=== PATIENT | female | born 1980 | race Caucasian/White ===

== ENCOUNTER 2019-06-05 11:53 | Day surgery (SDC) | payer BC, OTHER ==
--- NOTE | 2019-06-05 08:18 | HP ---
DATE OF SURGERY: 06/05/2019 HISTORY OF PRESENT ILLNESS: The patient is a 38 year-old had some for a couple of month's right side abdominal pain, vomiting and diarrhea. She had constant back pain for the past few weeks worse with fatty foods. She has a brother with some gallbladder problems in the past. She had MRCP in the past. She had some loose stools on one occasion but otherwise normal bowel regimen. She went to the emergency room a couple of times. She had CT scans that were okay. She had endoscopic ultrasound by Dr. Meredith who felt she had some chronic cholecystitis and some wall thickening on endoscopic ultrasound. PAST SURGICAL HISTORY: She had surgery on her knuckles and her hand in the past. Right shoulder surgery. section. Tubal. Hysterectomy. Endoscopy and endoscopic ultrasound by Dr. Meredith who felt she had some wall thickening and chronic cholecystitis. MEDICATIONS: Carafate, dicyclomine, Zofran, Prilosec. ALLERGIES: ULTRAM CAUSED SWELLING. FAMILY HISTORY: Negative in regards to this problem. SOCIAL HISTORY: Half pack per day smoker. Occasional alcohol use denies abuse. REVIEW OF SYSTEMS: Fourteen systems reviewed. No chest pain or palpitations other systems negative or noncontributory as above and per preadmission questionnaire. PHYSICAL EXAMINATION: GENERAL: No acute distress. HEENT: Sclerae nonicteric. NECK: No JVD. CHEST: Equal excursion, nonlabored breathing. CVS: Regular rate and rhythm. ABDOMEN: Soft. No peritoneal signs. Mild tenderness right upper quadrant. EXTREMITIES: No significant edema. NEURO: Alert, oriented, moving extremities symmetrically. No gross motor deficits noted. IMPRESSION: Thick walled gallbladder on endoscopic ultrasound. Dr. Meredith felt endoscopic ultrasound findings consistent with chronic cholecystitis. We discussed the options as well as treatments. I felt she would benefit cholecystectomy. Discussed the options of laparoscopic cholecystectomy possible open. She was shown the gallbladder pamphlet and risk sheet, explained the procedure in detail but not limited to bleeding or infection, risk of trocar injury or hernia, small risk of bowel, bladder or blood vessel injury, small risk of bile leak, bile duct injury, retained stone or sludge possibly requiring further procedure either open or ERCP, general risk of anesthesia, deep venous thrombosis, pulmonary embolism, pneumonia, perioperative risk of aches, pains, bloating, constipation and/or loose stools possibly even chronic in nature as well as the possibility that this procedure may not improve her symptoms. She may need further work up and/or testing, endoscopy, other studies or procedures or referrals. She understands and agrees to the planned procedure, will proceed with laparoscopic cholecystectomy with possible open as an outpatient.
[~2019-06-05 11:53] MED LIST: BRIDION 200MG/2ML IV ONE; DIPRIVAN 200 MG/20 ML IV ONE; Lactated Ringers 1,000 ML IV ONE; Lactated Ringers 1,000 ML IV SCH; MEFOXIN 2 GM PREMIX** 2 GM/50 ML ML IV SCH; SUBLIMAZE 250 MCG/5 ML ONE; Sensorcaine 0.25% 10 ML ONE; Versed 2 MG/2 ML Injection ONE; Zemuron 100 MG/10 ML ONE
[2019-06-05] MEDS ORDERED: MEFOXIN 2 GM PREMIX** 2 GM/50 ML ML IV ONE (12:07)
[2019-06-05] MEDS ORDERED: Lactated Ringers 1,000 ML IV ONE (12:08)
[2019-06-05] MEDS ORDERED: Decadron 4 MG INJ ONE (13:16)
[2019-06-05] MEDS ORDERED: Zofran 4 MG/2 ML VIAL ONE (13:16)
[2019-06-05] MEDS ORDERED: TORAdol 30 mg Injection ONE (13:26)
[2019-06-05] MEDS ORDERED: SUBLIMAZE 100 MCG/2 ML ONE (13:49)
[2019-06-05] MEDS ORDERED: Compazine 10 MG/2 ML ONE (13:51)
[2019-06-05] MEDS ORDERED: MORPHINE SULFATE 10 MG/ML ONE (13:55)
--- NOTE | 2019-06-05 15:32 | OP ---
SURGERY DATE/TIME: 06/05/2019 1259 PREOPERATIVE DIAGNOSIS: Right upper quadrant pain, abnormally thickened gallbladder wall suspicious for chronic cholecystitis on endoscopic ultrasound. POSTOPERATIVE DIAGNOSES: 1) Right upper quadrant pain, abnormally thickened gallbladder wall suspicious for chronic cholecystitis on endoscopic ultrasound. 2) Mild chronic inflammation. PROCEDURE: Laparoscopic cholecystectomy. SURGEON: Dr. Severo Pang. APPRENTICE COOK: Nick Adhikari, Medical Student III. ANESTHESIA: General. ESTIMATED BLOOD LOSS: Minimal. INDICATIONS: As noted above. Risks and benefits explained in detail but not limited to and consent obtained. DESCRIPTION OF PROCEDURE AND FINDINGS: The patient was taken to the operating room. General anesthesia induced. Abdomen prepped and draped in the usual sterile fashion. After official time out and no disagreement with planned procedure. She had supraumbilical piercing so infraumbilical incision made through her old scar. Dissection carried down. Fascia grasped and pulled upward. Veress needle inserted and tested with saline. Pneumoperitoneum accomplished insufflating opening pressure of 0-15. An 11 mm bladeless port and camera inserted without difficulty followed by two - 5 mm right upper quadrant ports and a 5 mm epigastric port. The gallbladder grasped retracted over the edge of the liver and laterally away from Calot's triangle. Dissection carried posterior, lateral to anterior fashion. Slowly and carefully the main cystic artery as well as cystic duct and infundibular junction slowly and carefully well skeletonized until the critical view obtained both anteriorly and posteriorly. Once this was accomplished, the cystic duct and cystic artery were clipped x3 and divided in usual fashion after critical view obtained both anteriorly and posteriorly well away from the visible common duct. The gallbladder slowly and carefully dissected free from its dense attachment to liver bed. It was quite vascular and required clipping additional oozing side branches off the cystic artery directly on the gallbladder wall as necessary. There was one small, little, tiny duct near the anterior edge of the liver. Whether this is a lymphatic duct versus small bile duct or duct of Luschka is clipped directly on the gallbladder wall. Just prior to releasing from final attachments one of the graspers tore a small hole in the gallbladder spilling a small amount of bile. There is no evidence of any stone or sludge spillage. Copious amount of irrigation irrigating clear. Gallbladder was clear. The gallbladder is then continued to be dissected directly off the gallbladder wall and dissecting off the dense attachments to the liver bed. Just prior to releasing from final attachments to the anterior edge of the liver, the liver bed re-inspected. Clips noted to be in place cystic duct and cystic artery stumps. There were no signs of any active bleeding or bile leakage. It was felt there was no benefit from drain placement at this point. Gallbladder released from final attachments to the anterior edge of liver. The gallbladder pulled up and out the 10/11 port site and passed off. Copious amount of irrigation accomplished lateral to the liver and subhepatic space irrigating until clear. Liver bed re-inspected, clips noted to be in place in cystic duct and cystic artery stumps. There were no signs of any active bleeding or bile leakage. It was felt there is no benefit from drain placement. At this point fascial defect 10/11 site closed with puncture closure device with #1 Vicryl. Pneumoperitoneum decompressed. The wound irrigated out. Skin incision closed with 4-0 Vicryl. 0.25% Marcaine local injected along the skin incision fascial defect. Steri-Strips and sterile dressing applied. The patient tolerated the procedure well. There were no immediate complications. Findings discussed the family out in the waiting area. She was transferred to the recovery room in stable condition.
[2019-06-05 15:57] VITALS: O2SAT 97
[2019-06-05 16:01] VITALS: BP 112/72; PULSE 68
== END 2019-06-05 15:57 | disposition home or self-care (01) ==
LOC: SDC 11:53
PROVIDERS: ATTEND Surgery
DX: K81.1 Chronic cholecystitis (principal)
CPT/HCPCS: 88304; J0694; J1100; J1885; J2250; J2270; J2405; J2704; J3010